=== PATIENT | female | born 1995 | race Asian ===

== ENCOUNTER 2023-04-04 10:03 | Emergency (ER) | payer SELFPAY ==
[2023-04-04] MEDS ORDERED: Proparacaine 0.5% Opth 15 ML BOT ONE (10:36)
[2023-04-04] MEDS ORDERED: Fluorescein Opthalmic Strip ONE (10:36)
== END 2023-04-04 11:29 | disposition home or self-care (01) ==
LOC: ERS 10:03
DX: S05.02XA Injury of conjunctiva and corneal abrasion without foreign body, left eye, initial encounter (principal); F17.200 Nicotine dependence, unspecified, uncomplicated; W55.03XA Scratched by cat, initial encounter
CPT/HCPCS: 99283